=== PATIENT | male | born 1990 | race Caucasian/White ===

== ENCOUNTER 2018-06-30 14:44 | Emergency (ER) | payer OTHER ==
[~2018-06-30] VITALS: Ht 170.2 cm; Wt 61.2 kg
[2018-06-30] MEDS ORDERED: AMOXICILLIN 50500 MG PO (15:36)
[2018-06-30 15:43] VITALS: BP 120/77
== END 2018-06-30 15:44 | disposition home or self-care (01) ==
LOC: M.ERS 14:44
DX: J02.0 Streptococcal pharyngitis (principal)

== ENCOUNTER 2019-05-28 17:33 | Emergency (ER) | payer OTHER ==
[~2019-05-28] VITALS: Ht 170.2 cm; Wt 61.2 kg
[~2019-05-28 17:33] MED LIST: AMOXICILLIN 50500 MG PO
[2019-05-28 18:04] LABS: ABSOLUTE BASOPHILS 0.1 thou/uL (0.0-0.2); ABSOLUTE EOSINOPHILS 0.1 thou/uL (0.0-0.7); ABSOLUTE LYMPHOCYTES 1.3 thou/uL (0.8-5.3); ABSOLUTE MONOCYTES 0.5 thou/uL (0.0-1.2); ABSOLUTE NEUTROPHILS 5.7 thou/uL (1.6-8.1); BASOPHILS 0.9 %; EOSINOPHILS 1.4 %; HEMATOCRIT 45.5 % (42.0-52.0); HEMOGLOBIN 16.1 gm/dL (14.0-18.0); LYMPHOCYTES 17.1 %; MCH 28.7 pg (26.0-34.0); MCHC 35.3 g/dL (28.0-37.0); MCV 81.3 fL (80.0-100.0); MONOCYTES 6.5 %; MPV 7.4 fl. (7.2-11.1); NUCLEATED RBCS 0 /100WBC; PLATELET COUNT* 299 thou/uL (150-400); POLYS 74.1 %; RBC 5.59 mil/uL (4.50-6.00); RDW-CV 13.9 % (10.5-14.5); WBC 7.6 thou/uL (4.0-11.0)
[2019-05-28 18:12] LABS: ANION GAP 8 mmol/L (7-16); BUN 7 mg/dL (7-18); CALCIUM 9.4 mg/dL (8.5-10.1); CHLORIDE 101 mmol/L (98-107); CO2 31 mmol/L (21-32); CREATININE 0.9 mg/dL (0.6-1.3); GLUCOSE 82 mg/dL (70-99); POTASSIUM 3.5 mmol/L (3.5-5.1); SODIUM 140 mmol/L (136-145)
[2019-05-28 18:29] LABS: ALBUMIN 4.6 g/dL (3.4-5.0); ALKALINE PHOSPHATASE 88 U/L (46-116); NT-PRO BRAIN NAT PEPTIDE 17 pg/mL (<300); SGOT 15 U/L (15-37); SGPT 19 U/L (30-65); TOTAL BILIRUBIN 0.5 mg/dL (<0.1-1.0); TOTAL PROTEIN 8.1 g/dL (6.4-8.2); TROPONIN-I LEVEL <0.06 ng/mL (<0.06)
[2019-05-28] MEDS ORDERED: VENTOLIN HFA 1818 GM INH (19:27)
[2019-05-28 19:34] VITALS: BP 120/80
--- NOTE | 2019-05-29 11:08 | EKG ---
[place] [address] ELECTROCARDIOGRAM REPORT Name: NAY OCHOA Room: [facility]#: [id number] Admission: 05/28/19 Attend Phys: Discharge: 05/28/19 Date of : [birth year] Report #: [id number] THIS REPORT FOR: //name// [facility] ED Test Date: 2019-05-28 Test Time: 18:28:47 Pat Name: NAY OCHOA Department: Room: Gender: M Engagement Liaison: CHARISSE : 1990 Requested By: Carmela Hills Order Number: [id number] MD: Star Jesus Measurements Intervals [place] Rate: 79 P: 34 IN: 155 QRS: 66 QRSD: 81 T: 65 QT: 361 QTc: 414 Interpretive Statements Sinus rhythm No previous ECG available for comparison Electronically Signed On 05-29-2019 11:07:49 CDT by Star Jesus [email or web address] <ELECTRONICALLY SIGNED> By: Star Jesus MD, [facility] 05/29/19 1107 1828 1828 Star Jesus MD, FACC /EPI
== END 2019-05-28 19:36 | disposition home or self-care (01) ==
LOC: M.ERS 17:33
PROVIDERS: Nurse Practitioner Family
DX: G43.909 Migraine, unspecified, not intractable, without status migrainosus (principal); R06.00 Dyspnea, unspecified; Z90.49 Acquired absence of other specified parts of digestive tract

== ENCOUNTER 2020-02-03 16:33 | Emergency (ER) | payer OTHER ==
[~2020-02-03] VITALS: Ht 170.2 cm; Wt 65.8 kg
[~2020-02-03 16:33] MED LIST changes: +VENTOLIN HFA 1818 GM INH
[2020-02-03 17:27] VITALS: BP 128/80
== END 2020-02-03 17:28 | disposition home or self-care (01) ==
LOC: M.ERS 16:33
DX: S61.212A Laceration without foreign body of right middle finger without damage to nail, initial encounter (principal); G43.909 Migraine, unspecified, not intractable, without status migrainosus; I10 Essential (primary) hypertension; Z90.49 Acquired absence of other specified parts of digestive tract; Z86.73 Personal history of transient ischemic attack (TIA), and cerebral infarction without residual deficits; W45.8XXA Other foreign body or object entering through skin, initial encounter; Y93.89 Activity, other specified; Y92.89 Other specified places as the place of occurrence of the external cause; Y99.9 Unspecified external cause status

== ENCOUNTER 2020-04-12 14:22 | Emergency (ER) | payer OTHER ==
[~2020-04-12] VITALS: Ht 170.2 cm; Wt 65.8 kg
[2020-04-12 14:49] VITALS: BP 142/81
== END 2020-04-12 14:51 | disposition home or self-care (01) ==
LOC: M.ERS 14:22
DX: S61.211A Laceration without foreign body of left index finger without damage to nail, initial encounter (principal); G43.909 Migraine, unspecified, not intractable, without status migrainosus; Z86.73 Personal history of transient ischemic attack (TIA), and cerebral infarction without residual deficits; W26.0XXA Contact with knife, initial encounter; Y93.89 Activity, other specified; Y92.89 Other specified places as the place of occurrence of the external cause; Y99.9 Unspecified external cause status

== ENCOUNTER 2020-05-07 20:33 | Emergency (ER) | payer OTHER ==
[~2020-05-07] VITALS: Ht 170.2 cm; Wt 65.8 kg
[2020-05-07 21:18] VITALS: BP 144/91
== END 2020-05-07 21:19 | disposition home or self-care (01) ==
LOC: M.ERS 20:33
DX: H60.92 Unspecified otitis externa, left ear (principal); G43.909 Migraine, unspecified, not intractable, without status migrainosus

== ENCOUNTER 2020-06-29 14:39 | Emergency (ER) | payer OTHER ==
[~2020-06-29] VITALS: Ht 170.2 cm; Wt 65.8 kg
[2020-06-29 16:16] VITALS: BP 126/72
== END 2020-06-29 16:17 | disposition home or self-care (01) ==
LOC: M.ERS 14:39
DX: B34.9 Viral infection, unspecified (principal); Z20.828 Contact with and (suspected) exposure to other viral communicable diseases; G43.909 Migraine, unspecified, not intractable, without status migrainosus; Z90.49 Acquired absence of other specified parts of digestive tract

== ENCOUNTER 2020-08-04 18:04 | Emergency (ER) | payer OTHER ==
[~2020-08-04] VITALS: Ht 170.2 cm; Wt 68.0 kg
[2020-08-04 18:12] VITALS: BP 131/90
[2020-08-04] MEDS ORDERED: AMOXICILLIN 50500 MG PO (18:21)
== END 2020-08-04 18:35 | disposition home or self-care (01) ==
LOC: M.ERS 18:04
DX: H66.92 Otitis media, unspecified, left ear (principal); G43.909 Migraine, unspecified, not intractable, without status migrainosus; Z90.49 Acquired absence of other specified parts of digestive tract

== ENCOUNTER 2021-07-02 11:08 | Emergency (ER) | payer OTHER ==
[~2021-07-02] VITALS: Ht 170.2 cm; Wt 68.0 kg
[2021-07-02 12:04] VITALS: BP 114/76
== END 2021-07-02 12:04 | disposition home or self-care (01) ==
LOC: M.ERS 11:08
DX: S61.012A Laceration without foreign body of left thumb without damage to nail, initial encounter (principal); G43.909 Migraine, unspecified, not intractable, without status migrainosus; Z90.89 Acquired absence of other organs; Z90.49 Acquired absence of other specified parts of digestive tract; W26.0XXA Contact with knife, initial encounter; Y93.89 Activity, other specified; Y92.89 Other specified places as the place of occurrence of the external cause; Y99.8 Other external cause status